=== PATIENT | female | born 1980 | race Caucasian/White ===

== ENCOUNTER → 2016-11-08 | Emergency (ER) | payer BC ==
[~2016-11-08] VITALS: Ht 162.6 cm; Wt 69.0 kg
[2016-11-08 09:33] VITALS: BP 145/90
== END | disposition home or self-care (01) ==
LOC: ED 08:37
DX: J06.9 Acute upper respiratory infection, unspecified (principal); J20.9 Acute bronchitis, unspecified; E11.9 Type 2 diabetes mellitus without complications; Z79.4 Long term (current) use of insulin; Z79.84 Long term (current) use of oral hypoglycemic drugs; F17.210 Nicotine dependence, cigarettes, uncomplicated
CPT/HCPCS: 99283